=== PATIENT | female | born 1950 | race Caucasian/White ===

== ENCOUNTER 2024-05-30 23:49 | Inpatient (IN) | payer MEDICARE, SELFPAY ==
[2024-05-30 20:28] VITALS: BP 168/98
[2024-05-30 20:52] LABS: % Eosinophils 5.7 % (0-6); % Immature Granulocytes 0.4 % (0-0.5); % Lymphocytes 22.9 % (20.5-51.1); % Monocytes 9.9 % (1.7-9.3); % Neutrophils 60.1 % (42.2-75.2); Absolute Basophils 0.1 10^3/uL (0-0.2); Absolute Eosinophils 0.6 10^3/uL (0-0.7); Absolute Lymphocytes 2.5 10^3/uL (1.2-3.4); Absolute Monocytes 1.1 10^3/uL (0.1-0.6); Absolute Neutrophils 6.7 10^3/uL (1.4-6.5); Hematocrit 45.6 % (37.0-47.0); Hemoglobin 15.2 g/dL (12.0-16.0); Mean Corp Hgb Conc. 33.3 g/dL (33.0-37.0); Mean Corpuscular Hgb 28.7 pg (27.0-31.0); Mean Corpuscular Volume 86.2 fL (81.0-99.0); Nucleated Red Blood Cells % 0 %; Platelet Count 348 10^3/uL (130-400); Red Blood Cell Count 5.29 10^6/uL (4.20-5.40); Red Cell Dist. Width 13.8 % (11.5-14.5); White Blood Cell Count 11.1 10^3/uL (4.8-10.8)
[2024-05-30 21:12] LABS: ALT (SGPT) 25 U/L (0-35); AST (SGOT) 28 U/L (14-36); Albumin 4.3 g/dl (3.5-5.0); Alkaline Phosphatase 97 U/L (38-126); Blood Urea Nitrogen 24 mg/dl (7-17); Calcium 9.6 mg/dl (8.4-10.2); Carbon Dioxide 25 mmol/L (22-30); Chloride 106 mmol/L (98-107); Glucose 110 mg/dl (70-99); Lipase 180 U/L (23-300); Potassium 4.4 mmol/L (3.5-5.1); Sodium 140 mmol/L (135-145); Total Bilirubin 0.3 mg/dl (0.2-1.3); Total Protein 7.2 g/dl (6.3-8.2); eGFR > 60.00
--- NOTE | 2024-05-30 21:49 | ED.GENMED ---
History of Present Illness
General
Chief Complaint: Abdominal Pain
Source: patient
Exam Limitations: none
Time Seen by Provider: 05/30/24 21:28
History of Present Illness
History of Present Illness:
See MDM
Past History
Past History
ED Past Medical History: GERD
ED Past Surgical History: Orthopedic and Tonsilectomy
Social History
Tobacco: Former smoker
Alcohol: Occasional
Drug: None
Personal:
Living: with family
Phy Exam
Physical Exam
Physical Exam:
See MDM
Course
Orders/Labs/Results
Orders:
Orders
05/30/24 20:42
Complete Blood Count/With Diff Urgent
Comprehensive Metabolic Panel Urgent
Lipase Urgent
05/30/24 21:23
EKG [Electrocardiogram (*1)] Urgent
Reason for Study: Abdominal Pain
EKG- Treatment ONCE
05/30/24 21:49
CT Abd/pelvis W Iv Cont Urgent
Comment:
Reason For Exam: lower abd pain
Morphine Sulfate 4 mg IV NOW STA
05/30/24 22:12
Ondansetron Injectable [Zofran] 4 mg IV NOW STA
05/30/24 22:27
Urinalysis Reflex To Culture Urgent
Date Specimen was Collected: 05/30/24
Time Specimen was Collected: 22:21
Urine Microscopic Reflex Cult Urgent
05/30/24 23:20
HYDROmorphone [Dilaudid] 1 mg IV NOW STA
05/30/24 23:22
Consult Urology [UROLOGY CONSULT] Routine
Consulting Provider: Han Fox
Was physician already notified: Yes
Abnormal Lab Results
05/30/24 05/30/24
20:42 22:27
WBC 11.1 H 10^3/uL
(4.8-10.8)
Absolute Neuts (auto) 6.7 H 10^3/uL
(1.4-6.5)
Absolute Monos (auto) 1.1 H 10^3/uL
(0.1-0.6)
Monocytes % 9.9 H %
(1.7-9.3)
BUN 24 H mg/dl
(7-17)
Glucose 110 H mg/dl
(70-99)
Ur Occult Blood Reflex 1+ A
(Negative)
Urine RBC 21-25 A /HPF
(0-2)
Urine Bacteria (Reflex) Few A
(Negative)
05/30/24 20:42
05/30/24 20:42
Vital Signs
Initial and Last Documented VS:
Initial Vital Signs
Temp Pulse Resp BP Pulse Ox
98.2 F 106 26 168/98 110
05/30/24 20:28 05/30/24 20:28 05/30/24 20:28 05/30/24 20:28 05/30/24 20:28
Last Documented Vital Signs
Temp Pulse Resp BP Pulse Ox
98.2 F 106 26 168/98 97
05/30/24 20:28 05/30/24 20:28 05/30/24 20:28 05/30/24 20:28 05/30/24 21:54
MDM/Problems Addressed
Differential Diagnosis Includes:
HPI and MDM Narrative:
73-year-old female presenting with sudden onset of lower abdominal pain. She states started around 7 PM. She initially thought it felt like gas pain but states that has never been this painful before. She localizes her pain to the suprapubic
region. She denies fevers or radiation of pain
Given her discomfort, will obtain CT abdomen/pelvis
Physical exam
General: Uncomfortable
HEENT: protecting airway
Neck: appears supple
CV: No evidence of cyanosis
Resp: No accessory muscle use
Abd: Non-distended. Generalized tenderness to the suprapubic region
Extremities: No deformities
Neuro: alert
Psych: Normal affect
Skin: Intact
Problems Addressed including Acute and Chronic Conditions affecting care:
1. Lower abdominal pain
Acuity: acute
Prognosis: stable
Details: Given discomfort, will obtain CT abdomen/pelvis. Patient given dose of morphine
Updates
Patient found to have 7 mm stone at left UPJ. Patient extremely uncomfortable even after morphine. Will give Dilaudid. Urology aware and will likely place stent in morning
Differential Diagnosis (but not limited to): UTI, kidney stone, diverticulitis
Testing considered: Abd ultrasound
Drug therapy (if applicable): OTC meds, please see d/c instruction regarding Rx drugs
Amount and/or Complexity of Data Reviewed
Clinical info obtained from: Patient
External data reviewed: N/A
Labs I independently reviewed (but not limited to): Mild leukocytosis
Radiology: The CT scan was personally and independently reviewed. In addition, official CT report reviewed.
Pulse Ox: not hypoxic
EKG independently reviewed: Sinus tachycardia, normal axis, no STEMI
Director Of Photography: N/A
Critical Care: N/A
Risk of Complication:
Social Determinants of health: Good social support
Discussed with other providers: Hospitalist, urology
Escalation of Care includes Admit/Obs: Given the pain with kidney stone, will admit
Occasional wrong word or 'sound a like' substitutions may have occurred due to the inherent limitations of voice recognition software. Read the chart carefully and recognize, using context, where substitutions have occurred.
*Critical Care Note
Total Time (30-74mins, 75-104mins- exclusive of procedures): Not Applicable
ED Attending Note
-
Portions of this chart may have been created with voice recognition software.� Occasional wrong word or��sound alike� substitutions may have occurred due to the inherent limitations of voice recognition software.
Discharge Plan
Departure
Patient Disposition: Admit
Date of Disposition: 05/30/24
Time of Disposition: 23:24
Admit to: Med/Surg
Presentation/result/management discussed w/ accepting MD/DO: Hospitalist
Discharge Problem:
Kidney stone on left side
Prescriptions:
No Action
djeahgdu-wvv-KU-lycopen-lutein [Centrum Silver] 1 EACH tablet
1 ea PO DAILY
ebedbfcu-owky-jnb8-C-terell-bosw 1 EACH tablet
1 tab PO DAILY
aspirin [Adult Low Dose Aspirin] 81 MG tablet,delayed release (DR/EC)
81 mg PO DAILY
omeprazole 20 MG capsule,delayed release(DR/EC)
20 mg PO BID
L.acidoph, paracasei,B. lactis 1 EACH capsule
1 ea PO DAILY
tamsulosin [Flomax] 0.4 mg capsule
0.4 mg PO HS Qty: 14 0RF
ondansetron 4 mg tablet,disintegrating
4 mg PO Q8H PRN (Reason: nausea and vomiting) Qty: 7 0RF
ibuprofen 600 mg tablet
600 mg PO TID PRN (Reason: pain) Qty: 20 0RF
Referrals:
Bi Juarez DO [Family Provider] -
Interventions
Interventions:
*Risk Screen - Suicide Last Done: 05/30/24 20:28
*General Assessment Last Done: 05/30/24 21:54
*Neglect/Abuse Screening Last Done: 05/30/24 20:28
ED- Fall Risk Assessment Last Done: 05/30/24 21:54
*ED COVID-19 Vaccine History Last Done: 05/30/24 21:54
UZ-Qeqpku-Wqtnsepiyd Assessment Last Done: 05/30/24 21:54
Discharge Date and Time
Print Language: KENYAN
[2024-05-30 21:54] VITALS: BMI 33.1
[2024-05-30] MEDS: ZOFRAN 4 MG IV (22:17)
[2024-05-30] MEDS: MORPHINE SULFATE 4 MG IV (22:17)
[2024-05-30 22:50] LABS: Urine Albumin Trace (Neg - Trace); Urine Bilirubin Negative (Negative); Urine Character Clear (Clear); Urine Color Yellow; Urine Glucose Negative (Negative); Urine Ketone Negative (Negative); Urine Leukocyte Negative (Negative); Urine Nitrite Negative (Negative); Urine Occult Blood 1+ (Negative); Urine Urobilinogen Negative (Neg - 1+)
[2024-05-30 23:03] LABS: Urine Bacteria Few (Negative); Urine Red Blood Cell 21-25 /HPF (0-2)
[2024-05-30] MEDS: DILAUDID 1 MG IV (23:28)
--- NOTE | 2024-05-30 23:44 | HPS.HSE ---
Family Physician
-
Family Physician: Bi Juarez
Chief Complaint
-
Abd Pain / Flank Pain
History of Present Illness
Patient is a 73y F with no significant PMH who presents to ED complaining of abdominal pain and back pain starting this afternoon. Patient states that she had been feeling well until this afternoon when she developed mid-abdominal pain that she
felt was 'gas pain'. Her pain worsened and spread to include her back as well as her abdomen. She developed nausea with multiple episodes of emesis. With persistent symptoms patient presented to the ED for further evaluation.
Patient reports history of kidney stone once prior. This passed spontaneously.
Medical History
Past Medical History
Past Medical History: Reports Other
Additional Past Medical History:
Nephrolithiasis
DJD
Past Surgical History: Reports Other
Additional Past Surgical History:
Cholecystectomy
Right SHERMAN
Right TKA
Social History
Tobacco: Smoker (Current some day smoker. > 40 pack years total.)
Alcohol: Occasional
Drug: None
Family History
Family History: Not pertinent
Allergies / Home Medications
Allergies reflects when Allergies were last updated in [employer].
Home Medications with original date entered in [employer]
Allergy/Medication List:
Allergies
Allergy/AdvReac Type Severity Reaction Status Date / Time
adhesive Allergy Rash Verified 05/30/24 20:32
'SEVERE'
chlorhexidine gluconate Allergy Rash Verified 05/30/24 20:32
[From Hibiclens]
Penicillins Allergy 'severe Verified 05/30/24 20:32
respiratory
reaction'
(as a
child)
Home Medications
No Meds [No Current Medications] 05/30/24
Review of Systems
-
History Source: Patient
A 12 point ROS was completed and negative except as noted: Yes
Constitutional: Denies Fever or Chills
Respiratory: Denies Cough or Trouble Breathing
Cardiac: Denies Chest Pain or Palpitations
Abdomen/GI: Reports Abdominal Pain, Nausea and Vomiting; Denies Diarrhea
: Reports Flank Pain; Denies Dysuria, Frequency or Bleeding
Neurological: Denies Dizzy or Headache
Psych: Denies Depression or Anxiety
Physical Exam
Vital Signs
Vital Signs
Temp Pulse Resp BP Pulse Ox
98.2 F 106 26 168/98 97
05/30/24 20:28 05/30/24 20:28 05/30/24 20:28 05/30/24 20:28 05/30/24 21:54
Physical Exam
General: Other (73y F in mild distress due to pain.)
HEENT: Moist mucous membranes
Respiratory: Clear; No Wheezes, Rales or Rhonchi
Cardiac: S1/S2 and Regular Rhythm; No Murmur
GI: Soft, Non Distended, Normal Bowel Sounds and Other (Pos L sided abdominal tenderness with voluntary guarding.)
Musculoskeletal: No Clubbing, No Cyanosis and No Edema
Neuro: AO x 3
Laboratory Results
-
05/30/24 20:42
05/30/24 20:42
Laboratory Results
Total Bilirubin 0.3 mg/dl (0.2-1.3) 05/30/24 20:42
AST 28 U/L (14-36) 05/30/24 20:42
ALT 25 U/L (0-35) 05/30/24 20:42
Alkaline Phosphatase 97 U/L (38-126) 05/30/24 20:42
Lipase 180 U/L (23-300) 05/30/24 20:42
Impression/Plan
-
A/P: Patient is a 73y F with no significant PMH who presents to ED complaining of abdominal pain and back pain.
Left UPJ Stone with Hydronephrosis
- Admit for further evaluation and treatment.
- Supportive care, pain control, tamsulosin overnight.
- Strain urine.
- Urology consulted for possible OR in the AM.
DVT Prophylaxis: SCDs
Code Status: Full
[2024-05-31] VITALS: BP 152/68
[2024-05-31 01:00] VITALS: BP 132/84
[2024-05-31 01:27] VITALS: BP 126/90; BMI 32.7
[2024-05-31] MEDS: NSS 500 IV ×2 (01:57→14:05)
[2024-05-31 07:15] VITALS: BP 138/71
--- NOTE | 2024-05-31 07:45 | W.SUR.PREOP ---
Pre-Operative Surgical Note
-
I have examined this patient prior to the performance of the scheduled procedure.
The patient's condition is unchanged from the time of the current History and
Physical and the patient is able to undergo the scheduled procedure.
05/30: CTAP w/o IV contrast => mild left hydronephrosis and moderate perinephric stranding secondary to a ~10 mm left UPJ stone.
WBC WNL
Cr WNL
UA not indicative of UTI
Given limited OR availability for non-urgent procedure for clinically stable patient, plan for OR in AM 06/01.
- Regular diet (ordered)
- NPO@[facility] for OR 06/01 - cystoscopy, left URS/laser lithotripsy/stone extraction/stent placement
- CT imaging reviewed w/ patient
D/w patient.
D/w Hospitalist.
[2024-05-31] MEDS: FLOMAX 0.4 MG PO (07:59)
[2024-05-31] MEDS: NSS IV ×2 (07:59→20:09)
[2024-05-31 08:40] LABS: Hematocrit 44.9 % (37.0-47.0); Hemoglobin 14.4 g/dL (12.0-16.0); Mean Corp Hgb Conc. 32.1 g/dL (33.0-37.0); Mean Corpuscular Hgb 28.1 pg (27.0-31.0); Mean Corpuscular Volume 87.7 fL (81.0-99.0); Mean Platelet Volume 9.4 fL (7.4-10.4); Platelet Count 340 10^3/uL (130-400); Red Blood Cell Count 5.12 10^6/uL (4.20-5.40); Red Cell Dist. Width 14.1 % (11.5-14.5); White Blood Cell Count 10.6 10^3/uL (4.8-10.8)
--- NOTE | 2024-05-31 08:43 | W.PN.HOSP.TC ---
Today's Communication/Plan
-
IVF, Urology eval.
Assessment / Plan
Assessment / Plan
Physical exam:
General: Well Developed, Well Nourished and No Apparent Distress
HEENT: Normocephalic, Atraumatic and Moist Mucous Membranes
Respiratory: Clear to Auscultation; Negative Wheezes, Rales or Rhonchi
Cardiac: Regular Rhythm and S1/S2
GI: Soft, Nontender and Nondistended
Musculoskeletal: No Clubbing, No Cyanosis and No Edema
Neuro: Awake, Alert and Oriented
Psych: Calm
A/P:
Left UPJ Stone with Hydronephrosis
- Admit for further evaluation and treatment.
- Supportive care, pain control, tamsulosin overnight.
- Strain urine.
- Urology consulted-->Discussed with urology and plan to go to OR in am
DVT Prophylaxis: SCDs
Code Status: Full
Anticipated Discharge: Within 24 hours
Subjective/Interval History
-
Date of Service: May 31, 2024
pte had R flank discomfort [employer] but better today. Afebrile
Objective Data
-
Labs:
Laboratory Results
05/30/24 05/31/24
20:42 08:06
WBC 11.1 H 10.6
Hgb 15.2 14.4
Hct 45.6 44.9
Plt Count 348 340
Sodium 140 Pending
Potassium 4.4 Pending
Chloride 106 Pending
Carbon Dioxide 25 Pending
BUN 24 H Pending
Creatinine 0.8 Pending
Glucose 110 H Pending
Calcium 9.6 Pending
Total Bilirubin 0.3
AST 28
ALT 25
Alkaline Phosphatase 97
Vital Signs:
Vital Signs
Temp Pulse Resp BP Pulse Ox
98.9 F 86 17 138/71 97
05/31/24 07:15 05/31/24 07:15 05/31/24 07:15 05/31/24 07:15 05/31/24 07:15
I&O
05/30/24 05/31/24 06/01/24
06:59 06:59 06:59
Output Total 400 / 400
Balance -400 / -400
[2024-05-31] MEDS: TORADOL 15 MG IV (09:10)
[2024-05-31 09:26] LABS: Blood Urea Nitrogen 19 mg/dl (7-17); Carbon Dioxide 25 mmol/L (22-30); Chloride 108 mmol/L (98-107); Estimated Creatinine Clearance 73 ml/min; Glucose 100 mg/dl (70-99); Potassium 4.6 mmol/L (3.5-5.1); Sodium 141 mmol/L (135-145); eGFR > 60.00
[2024-05-31 15:15] VITALS: BP 140/70
--- NOTE | 2024-05-31 15:47 | CM ---
Alert awake oriented patient who lives with her Anish and dgt Jolly in a 2 story home with 5 steps to enter and elevator to bed/bathroom. She is independent in activates of daily living.She does drive .No adaptive devices.Pt for
surgery for kidney stones tomorrow.
No VN in past . No SNF hx
Pharmacy [facility]
PCP Dr Juarez
PLAN Home with no needs
[2024-05-31 23:00] VITALS: BP 134/74
[2024-06-01] VITALS (8 sets, daily range): BP systolic 74–149; BP diastolic 45–84
[2024-06-01] MEDS: TORADOL 15 MG IV (00:06)
[2024-06-01] MEDS: NSS 500 IV (03:15)
[2024-06-01 07:09] LABS: Blood Urea Nitrogen 19 mg/dl (7-17); Calcium 8.3 mg/dl (8.4-10.2); Carbon Dioxide 24 mmol/L (22-30); Chloride 109 mmol/L (98-107); Estimated Creatinine Clearance 64 ml/min; Glucose 86 mg/dl (70-99); Potassium 4.2 mmol/L (3.5-5.1); Sodium 139 mmol/L (135-145); eGFR > 60.00
[2024-06-01 07:26] LABS: % Basophils 0.8 % (0-2); % Eosinophils 7.6 % (0-6); % Immature Granulocytes 0.3 % (0-0.5); % Lymphocytes 33.2 % (20.5-51.1); % Neutrophils 46.1 % (42.2-75.2); Absolute Basophils 0.1 10^3/uL (0-0.2); Absolute Eosinophils 0.6 10^3/uL (0-0.7); Absolute Lymphocytes 2.5 10^3/uL (1.2-3.4); Absolute Monocytes 0.9 10^3/uL (0.1-0.6); Absolute Neutrophils 3.5 10^3/uL (1.4-6.5); Hematocrit 38.7 % (37.0-47.0); Hemoglobin 12.9 g/dL (12.0-16.0); Mean Corp Hgb Conc. 33.3 g/dL (33.0-37.0); Mean Corpuscular Hgb 29.3 pg (27.0-31.0); Mean Corpuscular Volume 87.8 fL (81.0-99.0); Mean Platelet Volume 9.7 fL (7.4-10.4); Nucleated Red Blood Cells % 0 %; Platelet Count 267 10^3/uL (130-400); Red Blood Cell Count 4.41 10^6/uL (4.20-5.40); White Blood Cell Count 7.7 10^3/uL (4.8-10.8)
--- NOTE | 2024-06-01 07:47 | W.PN.HOSP.TC ---
Today's Communication/Plan
-
OR by urology today. Discharge planning possibly after procedure.
Assessment / Plan
Assessment / Plan
Physical exam:
General: Well Developed, Well Nourished and No Apparent Distress
HEENT: Normocephalic, Atraumatic and Moist Mucous Membranes
Respiratory: Clear to Auscultation; Negative Wheezes, Rales or Rhonchi
Cardiac: Regular Rhythm and S1/S2
GI: Soft, Nontender and Nondistended
Musculoskeletal: No Clubbing, No Cyanosis and No Edema
Neuro: Awake, Alert and Oriented
Psych: Calm
A/P:
Left UPJ Stone with Hydronephrosis
- Admit for further evaluation and treatment.
- Supportive care, pain control, tamsulosin overnight.
- Strain urine.
- Urology consulted
-Plan to go to the OR by urology today
-Discharge planning once cleared by urology
DVT Prophylaxis: SCDs
Code Status: Full
Anticipated Discharge: Today
Subjective/Interval History
-
Date of Service: June 01, 2024
Patient denies any flank pain. No dysuria urgency or frequency. Afebrile
Objective Data
-
Labs:
Laboratory Results
06/01/24
05:22
WBC 7.7
Hgb 12.9
Hct 38.7
Plt Count 267 D
Sodium 139
Potassium 4.2
Chloride 109 H
Carbon Dioxide 24
BUN 19 H
Creatinine 0.9
Glucose 86
Calcium 8.3 L
Vital Signs:
Vital Signs
Temp Pulse Resp BP Pulse Ox
99.4 F 86 18 134/74 96
05/31/24 23:00 05/31/24 23:00 05/31/24 23:00 05/31/24 23:00 05/31/24 23:00
I&O
05/31/24 06/01/24 06/02/24
06:59 06:59 06:59
Intake Total 1680 / 1680
Output Total 400 / 400 400 / 400
Balance -400 / -400 1280 / 1280
[2024-06-01] MEDS: FLOMAX 0.4 MG PO (08:45)
--- NOTE | 2024-06-01 16:36 | CM ---
Pt for surgery for kidney stones tomorrow.
Offered Vn she declined need at dc.
PLAN Postop home no needs
--- NOTE | 2024-06-01 16:57 | W.DCSUMMARY ---
Discharge Summary
Discharge Data
Date of Admission: 05/30/24
Date of Discharge: 06/01/24
-
Pending Results: No
Hospital Course
Patient is 73 years old female presented to the hospital left ureteral stone with hydronephrosis. She was given IV fluids and pain medications. No signs of infection. Urology consulted. Patient was taken to the OR by urology on 06/01/2024.
Patient did well postop and urology cleared her for discharge today. Urology asked to dispense few days of antibiotics. No other events were noticed. Patient is being discharged in stable condition today.
Discharge Plan
-
Patient Disposition: Home (Routine Discharge)
Discharge Diagnosis/Procedures: Left ureteral stone with hydronephrosis status post cystoscopy, laser lithotripsy, stone extraction, stent placement.
Diet: Regular
Activity: As tolerated
Blood Work: Please PCP to order CBC, BMP within 1 week
Referrals:
Bi Juarez DO [Family Provider] - in less than 1 week
Han Fox MD [Active] - in one to two weeks (call Dr Espinoza or Dr Fox [phone] to schedule stent removal Until stent removed expect frequency urgency blood in urine and left flank discomfort the entire time stent is in Call if
fevr chills or too much discomfort)
Prescriptions:
New
acetaminophen 325 mg Tablet
650 mg PO Q4HPRN PRN (Reason: Mild Pain / Temp > 101) Qty: 0 0RF
levofloxacin 500 mg tablet
500 mg PO DAILY Qty: 5 0RF
Discharge Orders:
Discharge Patient (As Directed); Ordered 06/01/24
Ordered By: Jacob Hopper
Discharge Date and Time
Discharge Date/Time: 06/01/24 20:13
Print Language: TONGAN
--- NOTE | 2024-06-01 17:56 | W.SUR.POST ---
Surgical Immediate Post Op
Note
Pre Op Diagnosis: left prox uretal and left renal stones
Post Op Diagnosis: same
Procedure Performed: left ureteroscopy complex laser lithalopaxy of uretteral and renal calculi with basket extraction and jj stent placement
Primary Surgeon: jarrod
Secondary Surgeons:
Anesthesia: genral dr stone
Estimated Blood Loss: 2
Fluids: nss
Drains/Shunts: 6 fr 24 cm left jj stent
Specimens/Cultures: stone
Doppler/Duplex/Angio (Y/N):
Complications: 0
Operative Findings: very lg prox uretral stone with obsturctioand 88mm left rnal mid pelvis stone
--- NOTE | 2024-06-01 19:09 | PTCARENOTE ---
Patient received from PACU, VSS, on room air, no pain. Pt able to ambulate to bathroom and voided. Tray at bedside. Discharge packet given, patient to eat dinner and then be discharged, daughter to pick her up.
--- NOTE | 2024-06-01 20:10 | PTCARENOTE ---
Pt ambulated to bathroom and voided without difficulty, ate dinner with no complaints.
Pt's friend Alpa here to drive her home. Pt wheeled in wheelchair to exit with all belongings.
== END 2024-06-01 20:13 | disposition home or self-care (01) | DRG 661 ==
LOC: 3 WEST ACU 23:49
PROVIDERS: Emergency Medicine; Specialist; ADMITTING PHYSICIAN Hospitalist; ATTENDING PHYSICIAN Hospitalist; EMERGENCY PHYSICIAN Student in an Organized Health Care Education/Training Program; FAMILY PHYSICIAN Family Medicine
PROC: 0T778DZ Dilation of Left Ureter with Intraluminal Device, Via Natural or Artificial Opening Endoscopic (ICD-10-PCS; 2024-06-01)
PROC: 0TC78ZZ Extirpation of Matter from Left Ureter, Via Natural or Artificial Opening Endoscopic (ICD-10-PCS; 2024-06-01)
DX: N13.2 Hydronephrosis with renal and ureteral calculous obstruction (principal); F17.200 Nicotine dependence, unspecified, uncomplicated
CPT/HCPCS: 74018; 74177; 76000; 80048; 80053; 81003; 81015; 82365; 83690; 85025; 85027; 93005; 96374; 96375; 99285; 99406; A4300; C1894; C2617; Q9967